=== PATIENT | female | born 1970 | race Caucasian/White ===

== ENCOUNTER 2017-08-19 | Emergency (ER) | payer BC ==
[2017-08-19 00:22] VITALS: BP 193/117
--- NOTE | 2017-08-19 00:50 | EDM.PDOC ---
ED HPI GENERAL MEDICAL PROBLEM - General Chief Complaint: Cardiovascular Problem Stated Complaint: HIGH BLOOD PRESSURE Time Seen by Provider: 08/19/17 00:26 Source of Information: Reports: Patient, Family (, daughter), RN Notes Reviewed History Limitations: Reports: No Limitations - History of Present Illness INITIAL COMMENTS - FREE TEXT/NARRATIVE: The patient states that she hasn't taken her blood pressure medications for about a month, stating that she has been too busy. She states that she had a sore neck, therefore went to a chiropractor for adjustment yesterday. This morning, she states that she had some "kaleidoscope" vision. She checked her blood pressure and found it to be elevated at 191/108. She took her lisinopril and hydrochlorothiazide. She went to work and had a nurse check her blood pressure, and found it to be 181/111. When she returned home around noon, she took some Tylenol and rechecked her blood pressure, finding it to be 157/95. She states that she took some Tylenol around 21:00. Around 22:00 she rechecked her blood pressure, finding it to be 209/111, therefore came here out of concern that she might have a stroke. The patient's PCP is Namita Lockhart and Dr. Delarosa. Neck Pain Score (Numeric/FACES): 8 - Related Data Allergies Allergy/AdvReac Type Severity Reaction Status Date / Time No Known Allergies Allergy Verified 08/19/17 00:22 Home Meds: Home Meds Hydrochlorothiazide 25 mg PO DAILY 03/08/16 [History] Lisinopril 10 mg PO DAILY 03/08/16 [History] Multivitamin [Multivitamins] 1 tab PO DAILY 03/08/16 [History] Past Medical History HEENT History: Reports: Impaired Vision Other HEENT History: wears glasses Cardiovascular History: Reports: Hypertension [employer] History: Reports: : 1 Para: 1 - Past Surgical History HEENT Surgical History: Reports: Adenoidectomy, Myringotomy w Tube(s), Tonsillectomy GI Surgical History: Reports: Cholecystectomy, Hernia, Abdominal (adele-umbilical ) Female Surgical History: Reports: Section (x 1), D&C (x 1) Social & Family History - Tobacco Use Smoking Status *Q: Never Smoker - Caffeine Use Caffeine Use: Reports: Coffee - Alcohol Use Alcohol Use History: Yes Alcohol Use Frequency: Socially - Recreational Drug Use Recreational Drug Use: No - Living Situation & Occupation Living situation: Reports: , with Spouse, with Family (2 kids) 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[employer]) ED ROS GENERAL - Review of Systems Review Of Systems: See Below Constitutional: Reports: No Symptoms HEENT: Reports: No Symptoms Respiratory: Reports: No Symptoms Cardiovascular: Reports: No Symptoms Endocrine: Reports: No Symptoms GI/Abdominal: Reports: No Symptoms : Reports: No Symptoms Musculoskeletal: Reports: No Symptoms Skin: Reports: No Symptoms Neurological: Reports: No Symptoms Psychiatric: Reports: No Symptoms Hematologic/Lymphatic: Reports: No Symptoms Immunologic: Reports: No Symptoms ED EXAM, GENERAL - Physical Exam Exam: See Below Exam Limited By: No Limitations General Appearance: Alert, WD/WN, No Apparent Distress Eye Exam: Bilateral Eye: Normal Inspection Ears: Normal External Exam, Hearing Grossly Normal Nose: Normal Inspection, No Blood Throat/Mouth: Normal Inspection, Normal Lips, Normal Voice, No Airway Compromise Head: Atraumatic, Normocephalic Neck: Normal Inspection, Full Range of Motion Respiratory/Chest: No Respiratory Distress, Lungs Clear, Normal Breath Sounds, No Accessory Muscle Use Cardiovascular: Normal Peripheral Pulses, Regular Rate, Rhythm, No Gallop, No JVD, No Murmur, No Rub Peripheral Pulses: 4+: Radial (L), Radial (R) GI/Abdominal: Normal Bowel Sounds, Soft, Non-Tender, No Organomegaly, No Distention, No Abnormal Bruit, No Mass (Female) Exam: Deferred Rectal (Female) Exam: Deferred Back Exam: Normal Inspection, Full Range of Motion, NT Extremities: Normal Inspection, Normal Range of Motion, No Pedal Edema, Normal Capillary Refill Neurological: Alert, Oriented, Normal Cognition, No Motor/Sensory Deficits Psychiatric: Normal Affect Skin Exam: Warm, Dry, Intact, Normal Color, No Rash Course - Vital Signs Last Recorded V/S: Last Vital Signs Temp 37.1 C 08/19/17 00:14 Pulse 93 08/19/17 00:14 Resp 16 08/19/17 00:14 BP 193/117 H 08/19/17 00:14 Pulse Ox 100 08/19/17 00:14 - Re-Assessments/Exams Free Text/Narrative Re-Assessment/Exam: 08/19/17 00:41 The patient's blood pressure is elevated here in the ED, however, not to the extent that would require emergent medical treatment, especially since the patient does not have any neurologic findings. I explained to the patient that spurious elevations in blood pressure are not in and of themselves dangerous, but if left unaddressed for years, can lead to end-organ damage, such as a stroke, heart attack, kidney failure, etc. I explained that while we have the capability to do so, there is no medical benefit to abruptly dropped the patient 's blood pressure, and in fact that is contraindicated. Instead, current guidelines recommend a gradual decrease in blood pressure over several days or perhaps weeks. In that context, it is not surprising that the patient's blood pressure is not normal after a single dose of her blood pressure medicines this morning. I'm recommending that the patient start taking her blood pressure medications every morning, as prescribed, and then, in about 2 weeks, begin checking her blood pressure 2-3 times a week, for 2-3 weeks, and only under restful conditions. She is to write these numbers down and present them to Dr. Delarosa to see if any blood pressure medication modification is required. Departure - Departure Time of Disposition: 00:44 Disposition: Home, Self-Care 01 Condition: Good Clinical Impression: Uncontrolled hypertension Instructions: Hypertension, [id number] Referrals: Nick Larose MD [Primary Care Provider] - Forms: ED Department Discharge Additional Instructions: You were seen in the emergency room for a concern about elevated blood pressure. As explained, while your blood pressure is elevated, it is not so high that it would require emergent medical treatment and, in fact, there are medical contraindications in doing so. We recommend that you resume taking your blood pressure medications daily, as prescribed. In about 2 weeks, we recommend that you start checking your blood pressure 2 to 3 times a week, for 2 to 3 weeks. It is preferable if you check your blood pressure at various times of the day. Write the numbers down, then present them to Dr. eDlarosa. Is very important that you are under restful conditions whenever your blood pressure is checked. Restful conditions means that you are sitting quietly for at least 5, and preferably 15 minutes, that you are not in pain, you are not ill , and you are not anxious. If any other problems, please do not hesitate to return to the ER.
== END 2017-08-19 00:59 | disposition home or self-care (01) ==
LOC: JD.ED
DX: I10 Essential (primary) hypertension (principal); Z79.899 Other long term (current) drug therapy
CPT/HCPCS: 99283

== ENCOUNTER 2022-08-06 14:07 | Emergency (ER) | payer OTHER ==
[2022-08-06] MEDS ORDERED: Acetaminophen 325 MG Tab ONE (15:46)
[2022-08-06 15:59] LABS: ESTIMATED GFR 77 mL/min (>60)
[2022-08-06 16:21] LABS: CORONAVIRUS COVID-19 NAA NEGATIVE (NEGATIVE)
[2022-08-11] MEDS ORDERED: Iopamidol 755 Mg/ML 100 ML Bottle IVPUSH ONE (14:25)
[2022-08-11] MEDS ORDERED: Sodium Chloride 0.9% 100 ML IV SCH (14:30)
[2022-08-12 11:27] VITALS: BP 157/110; PULSE 96
== END 2022-08-06 19:45 ==
LOC: JD.ED 14:07
DX: R06.00 Dyspnea, unspecified (principal); R68.83 Chills (without fever); I10 Essential (primary) hypertension; Z90.49 Acquired absence of other specified parts of digestive tract; Z20.822 Contact with and (suspected) exposure to COVID-19
CPT/HCPCS: 0240U; 36415; 71045; 71275; 80053; 81003; 83880; 85025; 85379; 86140; 93005; 99284